=== PATIENT | male | born 1985 | race Caucasian/White ===

== ENCOUNTER 2025-02-19 12:59 | Outpatient (AMB) | payer MEDICAID, SELFPAY ==
--- OUTSIDE RECORDS SUMMARY | 2025-02-12 10:30 | XMS_ITS ---
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[employer] Tobacco use: Current [...] Risk Notes Problem Attention deficit hyperactivity disorder (892466766) Attention-deficit hyperactivity disorder, unspecified type (F90.9) Active confirmed Problem Tobacco user (881587059) Nicotine dependence, unspecified, uncomplicated (F17.200) Active confirmed Vital Signs Blood pressure systolic 93 mm Hg 02/13/20 25 Blood pressure diastolic 62 mm Hg 025 Heart Rate 130, 130.0 /min 02/12/2025 Height 67.72 in 02/12/2025 Weight 123 lbs 02/12/2025 BMI 18.86 kg/m2 02/12/2025 Oximetry 93 % 02/12/2025 Height-cm 172.01 cm 02/12/2025 Weight-kg 55.79 kg 02/12/2025 Encounters Encounter Location Date Provider Diagnosis [facility] [address] [facility] [address] [place], [place] 02/12/2025 ger scott Attention-deficit hyperactivity disorder, [...] PANEL, STANDARD (7600) 02/12/2025 COMPREHENSIVE METABOLIC PANEL (26888) CBC (INCLUDES DIFF/PLT) (6399) URINALYSIS, COMPLETE W/REFLEX TO CULTURE (3020) 02/12/2025 HEMOGLOBIN A1c (496) 02/12/2025 VITAMIN B12/FOLATE, SERUM PANEL (7065) 1 VITAMIN D,25-OH,TOTAL,IA (21265) 025 Next Appt Details Follow Up: Not discussed, Re ason: Provider Name:ger scott , 02/26/2025 03:00:00 PM, [address] [facility] [address], [place], [address], Procedure Notes * Category Sub-Category Detail Notes EKG Indication EKG : normal sin us rhythm with appropriate heart rate , no CO interval abnormalities , no ST segment changes [...] full range of motion Psych: cooperative with mauroa nilo Progress Notes * aJcob KIMBALLDOB:1985 ( 39 yo M)Acc No.[id number]:02/12/2025 Patient: Jacob Gu Provider: Lavelle Scott MD :1985 A ge:39 Y S ex:Male Date:02/12/2025 Address: [address] , [facility] Subjective: * Chief Complaints: * C heck [...] STANDARD (7600) L AB: COMPREHENSIVE METABOLIC PANEL (25394) L AB: CBC (INCLUDES DIFF/PLT) (6399) L AB: HEMOGLOBIN A1c (496) 6. E ncounter for screening for other suspected endocrine disorder L AB: THYROID PANEL WITH TSH (7444) 7. U rinary frequency L AB: URINALYSIS, COMPLETE W/REFLEX TO CULTURE (3020) 8. V itamin B12 deficiency L AB: VITAMIN B12/FOLATE, SERUM PANEL (7065) 9. V itamin D deficiency L AB: VITAMIN D,25-OH,TOTAL,IA (34237) * Procedures: E KG: Indication E KG : normal sinus rhythm with appropriate heart rate , no [place] interval abnormalities , no ST segment changes , or T wave abnormalities no signs of ischemia . no QRS interval abnormalities. * Procedure Codes: 9 3000 -ELECTROCARDIOGRAM, COMPLETE * Follow Up: N ot discussed Billing Information: * Visit Code: 57185 Preventive Care New Pt. Age 18-39. * Procedure Codes: 26285 -ELECTROCARDIOGRAM, COMPLETE. * Electronic signature of ger scott MD on 02/19/2025 at 04:22 PM EDT Sign off status: Pending * Provider: Lavelle Scott MD Date: Generated for Feng silveira/Kristofer/Concepcionitting on: 04:22 PM EDT
[2025-02-19 13:09] VITALS: BP 136/70; PULSE 97; O2SAT 99; BMI 21.5
--- NOTE | 2025-02-19 13:09 | MHC.OFFVIS ---
Vital Signs 02/19/25 13:09 Height 5 ft 7 in Weight 137 lb BMI 21.5 BP 136/70 Pulse 97 Pulse Oximetry (%) 99 Intake Visit Reasons: MAT Intake Allergies No Known Allergies Allergy (Verified 02/19/25 13:10) HPI Comments Details: A 39-year-old male presents for a MAT intake r/t GEORGIE. Reports in remission for past 1.5 years with buprenorphine-naloxone 8-2 mg BID and is transferring care as current provider no longer accepts his insurance. Acknowledges intermittent use of smoking heroin, due to increase cravings. Denies alcohol consumption, smokes 1 pack of cigarettes per day and will intermittently use cocaine. 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 Is engaged in mental health services with a psychiatrist inpatient states I need an increase in the buprenorphine-naloxone frequency to help lessen my cravings. [facility] Social History (Updated 02/19/25 @ 13:33 by FREDERICK Ryan) Household Members: Family Household Members Other:: Mother Are you a primary youth care professional to a significant other at home: Yes Do you presently have visiting nurse or other home services: No Review of Systems Const All systems reviewed & are unremarkable except as noted in HPI and below Physical Exam Vital Signs: Last Vital Signs Pulse 97 02/19/25 13:09 BP 136/70 02/19/25 13:09 Pulse Ox 99 02/19/25 13:09 BMI result Body Mass Index 21.5 Const General: cooperative Nutritional Appearance: thin Orientation/consciousness: oriented to person HEENT Head: Yes normal to inspection Ears: hearing grossly normal bilaterally General nose exam: Normal external nose present Face and sinus: Yes normal facial exam Teeth and gingiva: poor dentition Neuro General: oriented to person Results AMB 14 Panel Urine Drug Screen Urine Marijuana (THC) Negative Last Edit by Adrianne Benitez CMA on 02/19/25 13:12 Urine Cocaine Positive Last Edit by Adrianne Benitez CMA on 02/19/25 13:12 Urine Morphine Negative Last Edit by Adrianne Benitez CMA on 02/19/25 13:12 Urine Methamphetamine Negative Last Edit by Adrianne Benitez CMA on 02/19/25 13:12 Urine Amphetamine Negative Last Edit by Adrianne Benitez CMA on 02/19/25 13:12 Urine Benzodiazepine Negative Last Edit by Adrianne Benitez CMA on 02/19/25 13:12 Urine Barbiturates Negative Last Edit by Adrianne Benitez CMA on 02/19/25 13:12 Urine Methadone Negative Last Edit by Adrianne Benitez CMA on 02/19/25 13:12 Urine Buprenorphine Positive Last Edit by Adrianne Benitez CMA on 02/19/25 13:12 Urine Tricyclic Antidepressant Negative Last Edit by Adrianne Benitez CMA on 02/19/25 13:12 Urine MDMA Negative Last Edit by Adrianne Benitez CMA on 02/19/25 13:12 Urine Oxycodone Negative Last Edit by Adrianne Benitez CMA on 02/19/25 13:12 Urine Phencyclidine Negative Last Edit by Adrianne Benitez CMA on 02/19/25 13:12 Urine Propoxyphene Negative Last Edit by Adrianne Benitez CMA on 02/19/25 13:12 Results Reviewed Results Reviewed: Laboratory Last Values POC Urine Buprenorphine Positive 02/19/25 13:11 POC Urine Morphine Negative 02/19/25 13:11 POC Urine Oxycodone Negative 02/19/25 13:11 POC Urine Methadone Negative 02/19/25 13:11 POC Urine Propoxyphene Negative 02/19/25 13:11 POC Urine Barbiturates Negative 02/19/25 13:11 POC U Tricyclic Antidpr Negative 02/19/25 13:11 POC Urine PCP Negative 02/19/25 13:11 POC Ur Amphetamines Negative 02/19/25 13:11 POC Ur Methamphetamine Negative 02/19/25 13:11 POC Urine MDMA Negative 02/19/25 13:11 POC Ur Benzodiazepine Negative 02/19/25 13:11 POC Urine Cocaine Positive 02/19/25 13:11 POC Ur Marijuana (THC) Negative 02/19/25 13:11 Assessment & Plan Assessment & Plan (1) Hepatitis C virus: Code(s): B19.20 - Unspecified viral hepatitis C without hepatic coma Category: Medical Qualifiers: Viral hepatitis chronicity: unspecified Hepatic coma status: without hepatic coma Qualified Code(s): B19.20 - Unspecified viral hepatitis C without hepatic coma (2) Substance use disorder: Code(s): F19.90 - Other psychoactive substance use, unspecified, uncomplicated Category: Medical Plan The plan of care is to increase buprenorphine-naloxone 8-2 mg from BID to TID to minimize cravings for heroin. Education provided regarding risk reduction activities to reduce the use of cocaine, and cigarettes. Narcan prescribed. Follow-up in 2 weeks or sooner if needed. Orders: Orders AMB 14 Panel Urine Drug Screen Today Z51.81 - Encounter for therapeutic drug level monitoring Medications: New buprenorphine-naloxone 8-2 mg (Suboxone) One film sublingually 3 times per day 1 film sublingual TID 42 ea 0RF 14 days naloxone 4 mg/actuation (Narcan) spray 1 dose into ONE nostril; alternate nostrils w each dose until help arrives 1 spray intranasal Q2M 2 ea 1RF 30 days Patient Instructions: - Start on increase buprenorphine-naloxone as prescribed. - Engage in risk reduction activities minimize use of cocaine and cigarettes. - Narcan prescribed. - Follow-up in 2 weeks or sooner if needed. - Call with questions, concerns, or to report side effects/new onset of symptoms to [facility]. - The patient verbalized understanding and agreed with plan of care. Coding Level of Care Code New Pt Level 3 (40833) Diagnoses Hepatitis C virus infection without hepatic coma, unspecified chronicity B19.20 Viral hepatitis chronicity: unspecified Hepatic coma status: without hepatic coma Substance use disorder F19.90
--- OUTSIDE RECORDS SUMMARY | 2025-02-19 16:23 | XMS_ITS | Patient Health Record ---
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 Marital status: Not Education: High school graduate Children: No children Drug use: Denies heroin, cocaine, marijuana, and other substances Alcohol use: Not discussed Problems Problem Type SNOMED Code ICD Code Onset Dates Problem Status W/U Status Risk Notes Problem Tobacco user (773152192) Nicotine dependence, unspecified, uncomplicated (F17.200) Active confirmed Problem Attention deficit hyperactivity disorder (824532098) Attention-deficit hyperactivity disorder, unspecified type (F90.9) Active confirmed Problem Vitamin D deficiency (74241080) Vitamin D deficiency (E55.9) Active confirmed Problem Hypercholesterolemia (08905453) Hypercholesterolemia (E78.00) Active confirmed Vital Signs Heart Rate 130, 130.0 /min 02/12/2025 Height-cm 172.01 cm 02/12/2025 Oximetry 93 % 02/12/2025 Blood pressure diastolic 62 mm Hg 02/12/2025 Weight-kg 55.79 kg 02/12/2025 Height 67.72 in 02/12/2025 Blood pressure systolic 93 mm Hg 02/12/2025 Weight 123 lbs 02/12/2025 BMI 18.86 kg/m2 02/12/2025 Encounters Encounter Location Date Provider Diagnosis [facility] [address] [facility] [address] [place], [place] 02/12/2025 ger scott Attention-deficit hyperactivity disorder, [...] deficiency (ICD-10 - E55.9) Plan Of Treatment Pending Test Test Name Order Date THYROID PANEL WITH TSH (7444) 02/12/2025 LIPID PANEL, STANDARD (7600) 02/12/2025 COMPREHENSIVE METABOLIC PANEL (16218) CBC (INCLUDES DIFF/PLT) (6399) URINALYSIS, COMPLETE W/REFLEX TO CULTURE (3020) 02/12/2025 HEMOGLOBIN A1c (496) 02/12/2025 VITAMIN B12/FOLATE, SERUM PANEL (7065) 1 VITAMIN D,25-OH,TOTAL,IA (47129) 025 Next Appt Details Provider Name:ger scott , 02/26/2025 03:00:00 PM, [address] [facility] [address], [place], [address], Insurance Providers Payer Name Payer Address Payer Phone Subscriber Number Group Number Insured Name Patient Relationship to Insured Coverage Start Date Coverage End Date [place] [address] [place] [address] [id number] Jacob Bazan Self - patient is the insured Medical (General) History Medical History History ICD Code adhd Attention-deficit hyperactivity disorder (adhd) Tobacco use disorder Surgical History Surgery Date(Month/Year) Denies any surgical history Hospitalization History Reason Date(Month/Year) Denies prior hospitalizations
== END 2025-02-19 13:30 | disposition home or self-care (01) ==
LOC: HO.HCC 12:59
PROVIDERS: Visit Provider Clinical Nurse Specialist Psychiatric/Mental Health
DX: B19.20 Unspecified viral hepatitis C without hepatic coma (principal); F19.90 Other psychoactive substance use, unspecified, uncomplicated; Z51.81 Encounter for therapeutic drug level monitoring
CPT/HCPCS: 99203

== ENCOUNTER → 2025-02-19 12:59 | Outpatient (BNVA) | payer MEDICAID, SELFPAY | PROVIDERS: Visit Provider Clinical Nurse Specialist Psychiatric/Mental Health | DX: B19.20 Unspecified viral hepatitis C without hepatic coma (principal); F19.90 Other psychoactive substance use, unspecified, uncomplicated; Z51.81 Encounter for therapeutic drug level monitoring; F17.200 Nicotine dependence, unspecified, uncomplicated | CPT/HCPCS: 80307; 99212 ==

== ENCOUNTER 2025-03-05 14:16 | Outpatient (AMB) | payer MEDICAID, SELFPAY ==
--- OUTSIDE RECORDS SUMMARY | 2025-02-12 09:30 | XMS_ITS ---
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 [...] Risk Notes Problem Attention deficit hyperactivity disorder (771215521) Attention-deficit hyperactivity disorder, unspecified type (F90.9) Active confirmed Problem Tobacco user (547756340) Nicotine dependence, unspecified, uncomplicated (F17.200) Active confirmed Vital Signs Blood pressure systolic 93 mm Hg 02/13/20 25 Blood pressure diastolic 62 mm Hg 025 Heart Rate 130, 130.0 /min 02/12/2025 Height 67.72 in 02/12/2025 Weight 123 lbs 02/12/2025 BMI 18.86 kg/m2 02/12/2025 Oximetry 93 % 02/12/2025 Height-cm 172.01 cm 02/12/2025 Weight-kg 55.79 kg 02/12/2025 Encounters Encounter Location Date Provider Diagnosis [facility] [address] [facility] [address] [place], [place] 02/12/2025 ger scott Attention-deficit hyperactivity disorder, [...] PANEL, STANDARD (7600) 02/12/2025 COMPREHENSIVE METABOLIC PANEL (94065) CBC (INCLUDES DIFF/PLT) (6399) URINALYSIS, COMPLETE W/REFLEX TO CULTURE (3020) 02/12/2025 HEMOGLOBIN A1c (496) 02/12/2025 VITAMIN B12/FOLATE, SERUM PANEL (7065) 1 VITAMIN D,25-OH,TOTAL,IA (21905) 025 Next Appt Details Follow Up: Not discussed, Re ason: Provider Name:ger scott , 03/06/2025 04:00:00 PM, [address] [place] [address] [address], [place], [address], Procedure Notes * Category Sub-Category Detail Notes EKG Indication EKG : normal sin us rhythm with appropriate heart rate , no [place] interval abnormalities , no ST segment changes [...] * Jacob KIMBALLDOB:1985 ( 39 yo M)Acc No.[id number]:02/12/2025 Patient: Jacob Gu Provider: Lavelle Scott MD :1985 A ge:39 Y S ex:Male Date:02/12/2025 Address: [address] [id number] Subjective: * Chief Complaints: * C heck [...] STANDARD (7600) L AB: COMPREHENSIVE METABOLIC PANEL (79534) L AB: CBC (INCLUDES DIFF/PLT) (6399) L AB: HEMOGLOBIN A1c (496) 6. E ncounter for screening for other suspected endocrine disorder L AB: THYROID PANEL WITH TSH (7444) 7. U rinary frequency L AB: URINALYSIS, COMPLETE W/REFLEX TO CULTURE (8600) 8. V itamin B12 deficiency L AB: VITAMIN B12/FOLATE, SERUM PANEL (7229) 9. V itamin D deficiency L AB: VITAMIN D,25-OH,TOTAL,IA (91106) * Procedures: E KG: Indication E KG : normal sinus rhythm with appropriate heart rate , no [place] interval abnormalities , no ST segment changes , or T wave abnormalities no signs of ischemia . no QRS interval abnormalities. * Procedure Codes: 9 3000 -ELECTROCARDIOGRAM, COMPLETE * Follow Up: N ot discussed Billing Information: * Visit Code: 14421 Preventive Care New Pt. Age 18-39. * Procedure Codes: 62610 -ELECTROCARDIOGRAM, COMPLETE. * Electronic signature of ger scott MD on 03/05/2025 at 03:55 PM EST Sign off status: Pending * Provider: Lavelle Scott MD Date: Generated for Feng silveira/Kristofer/Concepcionitting on: 05/05/2024 03:55 PM EST
--- OUTSIDE RECORDS SUMMARY | 2025-02-26 10:00 | XMS_ITS ---
Author Organization [facility] Address [address] [place], [place] Care Team Providers Care Chalk Cutter Name Role Phone ger scott Unavailable [phone] REASON FOR VISIT F/U LABS Encounters Encounter Location Date Provider Diagnosis [facility] [address] [place], [place] 02/26/2025 ger scott Plan Of Treatment Next Appt Details Provider Name:ger scott , 03/06/2025 04:00:00 PM, [address], [place], [place], , Progress Notes * REHANA JacobDOB:1985 ( 39 yo M)Acc No.[id number]:02/26/2025 Progress Notes Patient: Jacob Gu Provider: Lavelle Scott MD :1985 A ge:39 Y S ex:Male Date:02/26/2025 Address: [address] [place] Subjective: * Chief Complaints: * F /U LABS * Electronic signature of ger scott MD on 03/05/2025 at 03:55 PM EST Sign off status: Pending * Provider: Lavelle Scott MD Date: 04/28/2024 Generated for Printi ng/Faxing/eTransmitting on: 05/05/2024 03:55 PM EST
--- OUTSIDE RECORDS SUMMARY | 2025-02-27 07:30 | XMS_ITS ---
Author Organization [facility] Address [address] [place], [place] Care Team Providers Care Pick Up Truck Driver Name Role Phone ger scott Unavailable [phone] REASON FOR VISIT DISABILITY PAPER WORK Encounters Encounter Location Date Provider Diagnosis [facility] [address] [place], [place] 02/27/2025 ger scott Plan Of Treatment Next Appt Details Provider Name:ger scott , 03/06/2025 04:00:00 PM, [address], [place], [place], , Progress Notes * KIMBALL, JacobDOB:1985 ( 39 yo M)Acc No.[id number]:02/27/2025 Progress Notes Patient: Jacob Gu Provider: Lavelle Scott MD :1985 A ge:39 Y S ex:Male Date:02/27/2025 Address: [address] [facility] Subjective: * Chief Complaints: * D ISABILITY PAPER WORK Billing Information: * Procedure Codes: * Electronic signature of ger scott MD on 03/05/2025 at 03:55 PM EST Sign off status: Pending * Provider: Lavelle Scott MD Date: 04/29/2024 Generated for Printi ng/Faxing/eTransmitting on: 05/05/2024 03:55 PM EST
[2025-03-05 14:24] VITALS: BP 122/78; PULSE 110; O2SAT 96
--- NOTE | 2025-03-05 14:24 | MHC.OFFVIS ---
Vital Signs 03/05/25 14:24 BP 122/78 Pulse 110 H Pulse Oximetry (%) 96 Intake Visit Reasons: MAT Allergies No Known Allergies Allergy (Verified 03/05/25 14:25) HPI Comments Details: A 39 year old male presents for follow up visit r/t GEORGIE in remission with buprenorphine-naloxone 8-2 mg TID. Denies use of opiates, alcohol, and other substances with the exception of smoking cigarettes and cannabis. Reports gradually decreasing use of cigarettes and cannabis. [facility] Social History Household Members: Family Household Members Other:: Mother Are you a primary rn urgent care to a significant other at home: Yes Do you presently have visiting nurse or other home services: No Review of Systems Const All systems reviewed & are unremarkable except as noted in HPI and below Physical Exam Vital Signs: Last Vital Signs Pulse 110 H 03/05/25 14:24 BP 122/78 03/05/25 14:24 Pulse Ox 96 03/05/25 14:24 Const General: cooperative Assessment & Plan Assessment & Plan (1) Substance use disorder: Code(s): F19.90 - Other psychoactive substance use, unspecified, uncomplicated Category: Medical Plan The plan of care is to continue with buprenorphine-naloxone 8-2 mg TID and follow-up in 1 month or sooner needed. Patient Instructions: - Continue with buprenorphine-naloxone as prescribed. - Follow-up in 1 month or sooner if needed. - Call with questions, concerns, or to report side effects/new onset of symptoms to [facility]. - The patient verbalized understanding and agreed with plan of care. Coding Level of Care Code Est Pt Level 3 (97690) Diagnoses Substance use disorder F19.90
--- OUTSIDE RECORDS SUMMARY | 2025-03-05 15:55 | XMS_ITS | Patient Health Record ---
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[employer] Tobacco use: Current smoker, more than 15 years Occupation: Not currently working; previously worked on mother's [employer] Marital status: Not Education: High school graduate Children: No children Drug use: Denies heroin, cocaine, marijuana, and other substances Alcohol use: Not discussed Problems Problem Type SNOMED Code ICD Code Onset Dates Problem Status W/U Status Risk Notes Problem Tobacco user (058131952) Nicotine dependence, unspecified, uncomplicated (F17.200) Active confirmed Problem Attention deficit hyperactivity disorder (631099891) Attention-deficit hyperactivity disorder, unspecified type (F90.9) Active confirmed Problem Vitamin D deficiency (96497463) Vitamin D deficiency (E55.9) Active confirmed Problem Hypercholesterolemia (13521523) Hypercholesterolemia (E78.00) Active confirmed Vital Signs Heart Rate 130, 130.0 /min 02/12/2025 Height-cm 172.01 cm 02/12/2025 Oximetry 93 % 02/12/2025 Blood pressure diastolic 62 mm Hg 02/12/2025 Weight-kg 55.79 kg 02/12/2025 Height 67.72 in 02/12/2025 Blood pressure systolic 93 mm Hg 02/12/2025 Weight 123 lbs 02/12/2025 BMI 18.86 kg/m2 02/12/2025 Encounters Encounter Location Date Provider Diagnosis [facility] [address] [facility] [address] [place] [address] 02/12/2025 ger scott Attention-deficit hyperactivity disorder, unspecified [...] PANEL, STANDARD (7600) 02/12/2025 COMPREHENSIVE METABOLIC PANEL (94498) CBC (INCLUDES DIFF/PLT) (6399) URINALYSIS, COMPLETE W/REFLEX TO CULTURE (3020) 02/12/2025 HEMOGLOBIN A1c (496) 02/12/2025 VITAMIN B12/FOLATE, SERUM PANEL (7065) 1 VITAMIN D,25-OH,TOTAL,IA (25357) 025 Next Appt Details Provider Name:ger jean paul scott , 03/06/2025 04:00:00 PM, [address], [place], [address], Insurance Providers Payer Name Payer Address Payer Phone Subscriber Number Group Number Insured Name Patient Relationship to Insured Coverage Start Date Coverage End Date [place] s [address] [place] [address] [id number] Jacob Bazan Self - patient is the insured Medical (General) History Medical History History ICD Code adhd Attention-deficit hyperactivity disorder (adhd) Tobacco use disorder Surgical History Surgery Date(Month/Year) Denies any surgical history Hospitalization History Reason Date(Month/Year) Denies prior hospitalizations
== END 2025-03-05 14:28 | disposition home or self-care (01) ==
LOC: HO.HCC 14:16
PROVIDERS: Visit Provider Clinical Nurse Specialist Psychiatric/Mental Health
DX: F19.90 Other psychoactive substance use, unspecified, uncomplicated (principal)
CPT/HCPCS: 99213

== ENCOUNTER → 2025-03-05 14:16 | Outpatient (BNVA) | payer MEDICAID, SELFPAY | PROVIDERS: Visit Provider Clinical Nurse Specialist Psychiatric/Mental Health | DX: F19.90 Other psychoactive substance use, unspecified, uncomplicated (principal); Z51.81 Encounter for therapeutic drug level monitoring; F17.210 Nicotine dependence, cigarettes, uncomplicated | CPT/HCPCS: 99212 ==

== ENCOUNTER 2025-04-03 14:32 | Outpatient (AMB) | payer MEDICAID, SELFPAY ==
--- OUTSIDE RECORDS SUMMARY | 2025-02-12 09:30 | XMS_ITS ---
Author Organization [facility] Address [address] [facility] [address] [place] [address] Care Team Providers Care Segmental Paving Supervisor Name Role Phone ger scott Unavailable [phone] Allergies No Known Allergies REASON FOR VISIT check up Medications Medication SIG (Take, Route, Frequency, Duration) Notes Start Date End Date Status buPROPion HCl ER (SR) 100 MG Tablet Extended Release 12 Hour TAKE 1 TABLET BY MOUTH TWICE A DAY Oral; Duration: 30 Days Active Suboxone 8-2 MG Film DISSOLVE 2 FILMS UN CASTILLO THE TONGUE EVERY DAY Sublingual; Duration: 30 Days Active Vyvanse 70 MG Capsule TAKE 1 CAPSULE BY MOUTH EVERY DAY IN THE MORNING Oral; Duration: 30 Days Active clonazePAM 0.5 MG Tablet TAKE 1 TABLET B Y MOUTH DAILY Oral; Duration: 30 Days Active Social History Tobacco Use: Social History Observation Description Date Details (start date - stop date) Current Smoker NA - NA Social History Drug/Alcohol: Social Info Question Answer Notes AUDIT-C (Standard) Did you have a drink containing alcohol in the past year? No Points 0 Interpretation Negative Tobacco Use: Social Info Question Answer Notes Tobacco Control (Standard) Tobacco use: Current smoker How often do you smoke cigarettes? Every day How many cigarettes a day do you smoke? 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 years Occupation: Not currently working; previously worked on mother's [employer] Marital status: Not Education: High school graduate Children: No children Drug use: Denies heroin, cocaine, marijuana, and other substances Alcohol use: Not discussed Problems Problem Type SNOMED Code ICD Code Onset Dates Problem Status W/U Status Risk Notes Problem Attention deficit hyperactivity disorder (424206721) Attention-deficit hyperactivity disorder, unspecified type (F90.9) Active confirmed Problem Tobacco user (143254644) Nicotine dependence, unspecified, uncomplicated (F17.200) Active confirmed Vital Signs Blood pressure systolic 93 mm Hg 02/13/20 25 Blood pressure diastolic 62 mm Hg 025 Heart Rate 130, 130.0 /min 02/12/2025 Height 67.72 in 02/12/2025 Weight 123 lbs 02/12/2025 BMI 18.86 kg/m2 02/12/2025 Oximetry 93 % 02/12/2025 Height-cm 172.01 cm 02/12/2025 Weight-kg 55.79 kg 02/12/2025 Encounters Encounter Location Date Provider Diagnosis [facility] [address] [facility] [address] [place], [place] 02/12/2025 ger scott Attention-deficit hyperactivity disorder, unspecified type F90.9 ; Annual physical exam Z00.00 ; Nicotine dependence, unspecified, uncomplicated F17.200 ; Tachycardia, unspecified R00.0 ; Hypercholesterolemia E78.00 ; Encounter for screening for other suspected endocrine disorder Z13.29 ; Urinary frequency R35.0 ; Vitamin B12 deficiency E53.8 and Vitamin D deficiency E55.9 Assessments Encounter Date Diagnosis (ICD Code) Assessment Notes Treatment Notes Treatment Clinical Notes Section Notes 02/12/2025 Attention-deficit hyperactivity disorder, unspecified type (ICD-10 - F90.9) ADHD is an ongoing condition managed with mental health medications. Patient selectively adheres to prescribed regimen, currently only taking Wellbutrin. Other medications (clonazepam, Vyvanse, Suboxone) are prescribed but not taken. 02/12/2025 Annual physical exam (ICD-10 - Z00.00) 02/12/2025 Nicotine dependence, unspecified, uncomplicated (ICD-10 - F17.200) Patient is a current smoker with more than 15 years of tobacco use. - Chest X-ray recommended due to long-term smoking history. 02/12/2025 Tachycardia, unspecified (ICD-10 - R00.0) Heart rate measured at 130 beats per minute during visit. No substance use reported by patient. - Electrocardiogram (EKG) ordered to evaluate tachycardia. - Comprehensive metabolic panel, kidney function panel, diabetes screening panel, and electrolytes panel ordered to assess underlying causes. 02/12/2025 Hypercholesterolemia (ICD-10 - E78.00) 02/12/2025 Encounter for screening for other suspected endocrine disorder (ICD-10 - Z13.29) 02/12/2025 Urinary frequency (ICD-10 - R35.0) 02/12/2025 Vitamin B12 deficien cy (ICD-10 - E53.8) 02/12/2025 Vitamin D deficiency (ICD-10 - E55.9) Plan Of Treatment Treatment Notes Assessment Notes Attention-deficit hyperactiv ity disorder, unspecified type ADHD is an ongoing condition managed wit mental health medications. Patient selectively adheres to prescribed regimen, currently only taking Wellbutrin. Other medications (clonazepam, Vyvanse, Suboxone) are prescribed but not taken. Nicotine dependence, unspeci fied, uncomplicated Patient is a current smoker with more than 15 years of tobacco use. - Chest X-ray recommended due to long-term smoking history. Tachycardia, unspecified Heart rate measured at 130 beats per minute during visit. No substance use reported by patient. - Electrocardiogram (EKG) ordered to evaluate tachycardia. - Comprehensive metabolic panel, kidney function panel, diabetes screening panel, and electrolytes panel ordered to assess underlying causes. Pending Test Test Name Order Date THYROID PANEL WITH TSH (7444) 02/12/2025 LIPID PANEL, STANDARD (7600) 02/12/2025 COMPREHENSIVE METABOLIC PANEL (17009) CBC (INCLUDES DIFF/PLT) (6399) URINALYSIS, COMPLETE W/REFLEX TO CULTURE (3020) 02/12/2025 HEMOGLOBIN A1c (496) 02/12/2025 VITAMIN B12/FOLATE, SERUM PANEL (7065) 1 VITAMIN D,25-OH,TOTAL,IA (47533) 025 Next Appt Details Follow Up: Not discussed, Re ason: Procedure Notes * Category Sub-Category Detail Notes EKG Indication EKG : normal sin us rhythm with appropriate heart rate , no ME interval abnormalities , no ST segment changes , or T wave abnormalities no signs of ischemia . no QRS interval abnormalities History and Physical Notes * HPI (History of Present Illness) Category Sub-Category Detail Notes Category Not es Depression Screening PHQ-2 (2015 Edition) Little interest or pleasure in doing things?: Not at all Feeling down, depressed, or hopeless?: N ot at all Total Score: 0 General HPI Jacob Kimball, a 39-year-old male, presented for a chronic condition follow-up focused on ADHD management and evaluation of an elevated heart rate. He described his current approach to mental health medications, noting that he only takes Wellbutrin and does not take clonazepam or Vyvanse, despite having prescriptions from his psychiatrist for Suboxone and other medications. This selective adherence highlights his personal strategy for managing his mental health, as well as potential non-compliance with prescribed regimens. During the visit, I noted his heart rate was significantly elevated at 130 beats per minute. He denied any use of heroin, cocaine, marijuana, or other substances, providing reassurance against substance-induced tachycardia. Additionally, Jacob is a current smoker and has maintained this habit for more than 15 years, which is relevant to his overall health profile and risk factors. These elements together frame the context of his visit and inform the ongoing management of his chronic conditions. Examination Category Sub-Category Detail Notes Category Not es General Examination General appearance: alert, p leasant, well-nourished and in no acute distress comfortable Head: normocephalic, Eyes: pupils equal, round, reactive to light and accommodation Ears: normal Nose: no lesions Neck / thyroid: carotid pulses are n ormal and without bruits neck is supple, with full range of motion and no cervical lymphadenopathy normal thyroid size and shape without nodules, or tenderness trachea midline Heart: regular rate and rhy thm without murmurs, gallops, clicks or rubs Lungs: with diminished edison th sounds throughout clear to auscultation bilaterally, with good air movement and no rales, rhonchi or wheezes Abdomen: soft with good bowel sounds, nontender, and no masses or hepatosplenomegaly no guarding or rigidity Extremities: normal extremity wit h no clubbing, cyanosis or edema Musculoskeletal: no swelling, redness , warmth or tenderness of the shoulder(s) with full range of motion Psych: cooperative with exa m Progress Notes * Jacob KIMBALLDOB:1985 ( 39 yo M)Acc No.[id number]:02/12/2025 Patient: Jacob Gu Provider: Lavelle Scott MD :1985 A ge:39 Y S ex:Male Date:02/12/2025 Address: [address] , [facility] Subjective: * Chief Complaints: * C heck up * HPI: D epression Screening: PHQ-2 (2015 Edition) L ittle interest or pleasure in doing things??Not at all F eeling down, depressed, or hopeless? N ot at all T otal Score 0 G eneral HPI: Jacob Kimball, a 39-year-old male, presented for a chronic condition follow-up focused on ADHD management and evaluation of an elevated heart rate. He described his current approach to mental health medications, noting that he only takes Wellbutrin and does not take clonazepam or Vyvanse, despite having prescriptions from his psychiatrist for Suboxone and other medications. This selective adherence highlights his personal strategy for managing his mental health, as well as potential non-compliance with prescribed regimens. During the visit, I noted his heart rate was significantly elevated at 130 beats per minute. He denied any use of heroin, cocaine, marijuana, or other substances, providing reassurance against substance-induced tachycardia. Additionally, Jacob is a current smoker and has maintained this habit for more than 15 years, which is relevant to his overall health profile and risk factors. These elements together frame the context of his visit and inform the ongoing management of his chronic conditions. * ROS: G eneral / Constitutional: Comments a ll 14 review of systems are negative except those mentioned in present history. * Medical History: Adhd Attention-deficit hyperactivity disorder (adhd) Tobacco use disorder Medical History Verified * Surgical History: Denies any surgical history Surgical History verified. * Hospitalization/Major Diagno stic Procedure: Denies prior hospitalizations Hospitalization Verified. * Family History: F ather: Prostate cancer. F amily History Verified.. Dad : prostate cancer. * Social History: T obacco Use: T obacco Use/Smoking T obacco use: c urrent smoker Tobacco Control (Standard) T obacco use: C urrent smoker H ow often do you smoke cigarettes? E very day H ow many cigarettes a day do you smoke? 1 1-20 D rug/Alcohol: A ROCÍO-C (Standard) D id you have a drink containing alcohol in the past year? 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 * Medications: T akingSuboxone 8-2 MG Film DISSOLVE 2 FILMS UNDER THE TONGUE EVERY DAY Sublingual Vyvanse 70 MG Capsule TAKE 1 CAPSULE BY MOUTH EVERY DAY IN THE MORNING Oral clonazePAM 0.5 MG Tablet TAKE 1 TABLET BY MOUTH DAILY Oral buPROPion HCl ER (SR) 100 MG Tablet Extended Release 12 Hour TAKE 1 TABLET BY MOUTH TWICE A DAY Oral Medication List reviewed and reconciled with the patientTaking Suboxone 8-2 MG Film DISSOLVE 2 FILMS UNDER THE TONGUE EVERY DAY Sublingual Taking Vyvanse 70 MG Capsule TAKE 1 CAPSULE BY MOUTH EVERY DAY IN THE MORNING Oral Taking clonazePAM 0.5 MG Tablet TAKE 1 TABLET BY MOUTH DAILY Oral Taking buPROPion HCl ER (SR) 100 MG Tablet Extended Release 12 Hour TAKE 1 TABLET BY MOUTH TWICE A DAY Oral Medication List reviewed and reconciled with the patient * Allergies: N .K.D.A.yesAllergies Verified. Objective: * Vitals: B P:93/62mm Hg, HR: 130 /min,130.0/min, Oxygen sat %:93%, Wt:123lbs, Wt- k.79kg, Ht:67.72in, Ht-cm:172.01cm, BMI:18.86Index, Body Surface Area:1.63. * Examination: G eneral Examination: General appearance: a lert, pleasant, well-nourished and in no acute distress comfortable . Head: n ormocephalic,. Eyes: p upils equal, round, reactive to light and accommodation. Ears: n ormal. Nose: n o lesions . Neck / thyroid: c arotid pulses are normal and without bruits neck is supple, with full range of motion and no cervical lymphadenopathy normal thyroid size and shape without nodules, or tenderness trachea midline . Heart: r egular rate and rhythm without murmurs, gallops, clicks or rubs . Lungs: w ith diminished breath sounds throughout clear to auscultation bilaterally, with good air movement and no rales, rhonchi or wheezes . Abdomen: s oft with good bowel sounds, nontender, and no masses or hepatosplenomegaly no guarding or rigidity . Musculoskeletal: n o swelling, redness, warmth or tenderness of the shoulder(s) with full range of motion . Extremities: n ormal extremity with no clubbing, cyanosis or edema . Psych: c ooperative with exam . Assessment: * Assessment: 1. A nnual physical exam - Z00.00 (Primary) 2 . A ttention-deficit hyperactivity disorder, unspecified type - F90.9 3 . N icotine dependence, unspecified, uncomplicated - F17.200 4 . T achycardia, unspecified - R00.0 5 . H ypercholesterolemia - E78.00 6 . E ncounter for screening for other suspected endocrine disorder - Z13.29 7 . U rinary frequency - R35.0 ?8. V itamin B12 deficiency - E53.8 9 . V itamin D deficiency - E55.9 ? Plan: * Treatment: 2. A ttention-deficit hyperactivity disorder, unspecified type Notes: ADHD is an ongoing condition managed with mental health medications. Patient selectively adheres to prescribed regimen, currently only taking Wellbutrin. Other medications (clonazepam, Vyvanse, Suboxone) are prescribed but not taken. 3. N icotine dependence, unspecified, uncomplicated Notes: Patient is a current smoker with more than 15 years of tobacco use. - Chest X-ray recommended due to long-term smoking history. 4. T achycardia, unspecified Notes: Heart rate measured at 130 beats per minute during visit. No substance use reported by patient. - Electrocardiogram (EKG) ordered to evaluate tachycardia. - Comprehensive metabolic panel, kidney function panel, diabetes screening panel, and electrolytes panel ordered to assess underlying causes. 5. H ypercholesterolemia L AB: LIPID PANEL, STANDARD (7600) L AB: COMPREHENSIVE METABOLIC PANEL (58748) L AB: CBC (INCLUDES DIFF/PLT) (6399) L AB: HEMOGLOBIN A1c (496) 6. E ncounter for screening for other suspected endocrine disorder L AB: THYROID PANEL WITH TSH (7444) 7. U rinary frequency L AB: URINALYSIS, COMPLETE W/REFLEX TO CULTURE (3020) 8. V itamin B12 deficiency L AB: VITAMIN B12/FOLATE, SERUM PANEL (7065) 9. V itamin D deficiency L AB: VITAMIN D,25-OH,TOTAL,IA (46987) * Procedures: E KG: Indication E KG : normal sinus rhythm with appropriate heart rate , no ME interval abnormalities , no ST segment changes , or T wave abnormalities no signs of ischemia . no QRS interval abnormalities. * Procedure Codes: 9 3000 -ELECTROCARDIOGRAM, COMPLETE * Follow Up: N ot discussed Billing Information: * Visit Code: 19779 Preventive Care New Pt. Age 18-39. * Procedure Codes: 35870 -ELECTROCARDIOGRAM, COMPLETE. * Electronic signature of ger scott MD on 04/03/2025 at 10:48 PM EST Sign off status: Pending * Provider: Lavelle Scott MD Date: 1 Generated for Feng silveira/Kristofer/Concepcionitting on: 06/04/2024 10:48 PM EST
--- OUTSIDE RECORDS SUMMARY | 2025-02-26 10:00 | XMS_ITS ---
Author Organization [facility] Address [address] [facility] [address] [place], [place] Care Team Providers Care Interlocking And Signal Mechanic Name Role Phone ger scott Unavailable [phone] REASON FOR VISIT F/U LABS Encounters Encounter Location Date Provider Diagnosis [facility] [address] [facility] [address] [place], [place] 02/26/2025 ger scott Plan Of Treatment No Information Progress Notes * Jacob KIMBALLDOB:1985 ( 39 yo M)Acc No.[id number]:02/26/2025 Progress Notes Patient: Jacob Gu Provider: Lavelle Scott MD :1985 A ge:39 Y S ex:Male Date:02/26/2025 Address: [address] [facility] Subjective: * Chief Complaints: * F /U LABS * Electronic signature of ger scott MD on 04/03/2025 at 10:49 PM EST Sign off status: Pending * Provider: Lavelle Scott MD Date: 04/28/2024 Generated for Printi ng/Faxing/eTransmitting on: 1 06/04/2024 10:49 PM EST
--- OUTSIDE RECORDS SUMMARY | 2025-02-27 07:30 | XMS_ITS ---
Author Organization [facility] Address [address] [facility] [address] [place], [place] Care Team Providers Care Hydraulic Lift Driver Name Role Phone ger scott Unavailable [phone] REASON FOR VISIT DISABILITY PAPER WORK Encounters Encounter Location Date Provider Diagnosis [facility] [address] [facility] [address] [place], [place] 02/27/2025 ger scott Plan Of Treatment No Information Progress Notes * KIMBALLJacob SaxenaDOB:1985 ( 39 yo M)Acc No.[id number]:02/27/2025 Progress Notes Patient: Jacob Gu Provider: Lavelle Scott MD :1985 A ge:39 Y S ex:Male Date:02/27/2025 Address: [address] [facility] Subjective: * Chief Complaints: * D ISABILITY PAPER WORK Billing Information: * Procedure Codes: * Electronic signature of ger scott MD on 04/03/2025 at 10:50 PM EST Sign off status: Pending * Provider: Lavelle Scott MD Date: 04/29/2024 Generated for Printi ng/Faxing/eTransmitting on: 06/04/2024 10:50 PM EST
[2025-04-03 14:42] VITALS: BP 110/70; PULSE 100; O2SAT 99
--- NOTE | 2025-04-03 14:42 | MHC.AM.SUB ---
Vital Signs 04/03/25 14:42 BP 110/70 Pulse 100 Pulse Oximetry (%) 99 Intake Visit Reasons: MAT Allergies No Known Allergies Allergy (Verified 04/03/25 14:43) HPI Comments Details: A 39-year-old male presents for a follow-up visit r/t GEORGIE in early remission with buprenorphine-naloxone 8-2 mg TID. Has been able to maintain sobriety from cocaine use for past month and denies use opiates, alcohol, and other substances with the exception of cannabis. Review of Systems Const All systems reviewed & are unremarkable except as noted in HPI and below Physical Exam Vital Signs: Last Vital Signs Pulse 100 04/03/25 14:42 BP 110/70 04/03/25 14:42 Pulse Ox 99 04/03/25 14:42 Const General: cooperative Results AMB 14 Panel Urine Drug Screen Urine Marijuana (THC) Negative Last Edit by Adrianne Benitez CMA on 04/03/25 14:53 Urine Cocaine Negative Last Edit by Adrianne Benitez CMA on 04/03/25 14:53 Urine Morphine Negative Last Edit by Adrianne Benitez CMA on 04/03/25 14:53 Urine Methamphetamine Negative Last Edit by Adrianne Benitez CMA on 04/03/25 14:53 Urine Amphetamine Positive Last Edit by Adrianne Benitez CMA on 04/03/25 14:53 Urine Benzodiazepine Negative Last Edit by Adrianne Benitez CMA on 04/03/25 14:53 Urine Barbiturates Negative Last Edit by Adrianne Benitez CMA on 04/03/25 14:53 Urine Methadone Negative Last Edit by Adrianne Benitez CMA on 04/03/25 14:53 Urine Buprenorphine Positive Last Edit by Adrianne Benitez CMA on 04/03/25 14:53 Urine Tricyclic Antidepressant Negative Last Edit by Adrianne Benitez CMA on 04/03/25 14:53 Urine MDMA Negative Last Edit by Adrianne Benitez CMA on 04/03/25 14:53 Urine Oxycodone Negative Last Edit by Adrianne Benitez CMA on 04/03/25 14:53 Urine Phencyclidine Negative Last Edit by Adrianne Benitez CMA on 04/03/25 14:53 Urine Propoxyphene Negative Last Edit by Adrianne Benitez CMA on 04/03/25 14:53 Results Reviewed Results Reviewed: Laboratory Last Values POC Urine Buprenorphine Positive 04/03/25 14:45 POC Urine Morphine Negative 04/03/25 14:45 POC Urine Oxycodone Negative 04/03/25 14:45 POC Urine Methadone Negative 04/03/25 14:45 POC Urine Propoxyphene Negative 04/03/25 14:45 POC Urine Barbiturates Negative 04/03/25 14:45 POC U Tricyclic Antidpr Negative 04/03/25 14:45 POC Urine PCP Negative 04/03/25 14:45 POC Ur Amphetamines Positive 04/03/25 14:45 POC Ur Methamphetamine Negative 04/03/25 14:45 POC Urine MDMA Negative 04/03/25 14:45 POC Ur Benzodiazepine Negative 04/03/25 14:45 POC Urine Cocaine Negative 04/03/25 14:45 POC Ur Marijuana (THC) Negative 04/03/25 14:45 PFSH Social History Household Members: Family Household Members Other:: Mother Are you a primary healthcare representative to a significant other at home: Yes Do you presently have visiting nurse or other home services: No Assessment & Plan Assessment & Plan (1) Opioid use disorder, severe, in early remission: Code(s): F11.21 - Opioid dependence, in remission Category: Medical Plan The plan of care is to continue with buprenorphine-naloxone 8-2 mg TID and follow-up in 2 months or sooner needed. Orders: Orders AMB 14 Panel Urine Drug Screen Today Z51.81 - Encounter for therapeutic drug level monitoring Medications: Changed From buprenorphine-naloxone 8-2 mg (Suboxone) One film sublingually 3 times per day 1 film sublingual TID 14 days 42 ea 0RF To buprenorphine-naloxone 8-2 mg (Suboxone) One film sublingually 3 times per day 1 film sublingual TID 90 ea 1RF 30 days Patient Instructions: - Continue with buprenorphine-naloxone as prescribed. - Follow-up in 2 months or sooner if needed. - Call with questions, concerns, or to report side effects/new onset of symptoms to [facility]. - The patient verbalized understanding and agreed with plan of care.
--- OUTSIDE RECORDS SUMMARY | 2025-04-03 22:49 | XMS_ITS | Patient Health Record ---
Author Organization [facility] Address [address] [address] Care Team Providers Care Emt P Name Role Phone ger scott Unavailable [phone] Allergies No Known Allergies Reason For Referral No Information Medications Medication SIG (Take, Route, Frequency, Duration) Notes Start Date End Date Status buPROPion HCl ER (SR) 100 MG Tablet Extended Release 12 Hour TAKE 1 TABLET BY MOUTH TWICE A DAY Oral; Duration: 30 Days Active clonazePAM 0.5 MG Tablet TAKE 1 TABLET B Y MOUTH DAILY Oral; Duration: 30 Days Active Vyvanse 70 MG Capsule TAKE 1 CAPSULE BY MOUTH EVERY DAY IN THE MORNING Oral; Duration: 30 Days Active Suboxone 8-2 MG Film DISSOLVE 2 FILMS UN CASTILLO THE TONGUE EVERY DAY Sublingual; Duration: 30 Days Active Social History Tobacco [...] Use/Smoking Tobacco use: current smoker Section Notes: 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 [employer] Tobacco use: Current smoker, more than 15 years Occupation: Not currently working; previously worked on mother's [employer] Marital status: Not Education: High school graduate Children: No children Drug use: Denies heroin, cocaine, marijuana, and other substances Alcohol use: Not discussed Problems Problem Type SNOMED Code ICD Code Onset Dates Problem Status W/U Status Risk Notes Problem Tobacco user (174069823) Nicotine dependence, unspecified, uncomplicated (F17.200) Active confirmed Problem Attention deficit hyperactivity disorder (903783044) Attention-deficit hyperactivity disorder, unspecified type (F90.9) Active confirmed Problem Vitamin D deficiency (86303014) Vitamin D deficiency (E55.9) Active confirmed Problem Hypercholesterolemia (54655723) Hypercholesterolemia (E78.00) Active confirmed Vital Signs Heart Rate 80 /min 03/06/2025 Height-cm 172.01 cm 03/06/2025 Oximetry 95 % 03/06/2025 Blood pressure diastolic 104 mm Hg 03/06/2025 Weight-kg 57.7 kg 03/06/2025 Height 67.72 in 03/06/2025 Blood pressure systolic 159 mm Hg 03/06/2025 Weight 127.2 lbs 03/06/2025 BMI 19.5 kg/m2 03/06/2025 Encounters Encounter Location Date Provider Diagnosis [address] 02/12/2025 [facility] Attention-deficit hyperactivity disorder, unspecified type F90.9 ; Annual physical exam Z00.00 ; Nicotine dependence, unspecified, uncomplicated F17.200 ; Tachycardia, unspecified R00.0 ; Hypercholesterolemia E78.00 ; Encounter for screening for other suspected endocrine disorder Z13.29 ; Urinary frequency R35.0 ; Vitamin B12 deficiency E53.8 and Vitamin D deficiency E55.[address] 03/06/2025 [facility] Cellulitis of left finger L03.012 Assessments Encounter Date Diagnosis (ICD Code) Assessment Notes Treatment Notes Treatment Clinical Notes Section Notes 02/12/2025 Attention-deficit hyperactivity disorder, unspecified type (ICD-10 - F90.9) ADHD is an ongoing condition managed with mental health medications. Patient selectively adheres to prescribed regimen, currently only taking Wellbutrin. Other medications (clonazepam, Vyvanse, Suboxone) are prescribed but not taken. 02/12/2025 Annual physical exam (ICD-10 - Z00.00) 03/06/2025 Cellulitis of left finger (ICD-10 - L03.012) Redness and swelling present at the site of a cut on the left index finger. Symptoms suggest infection requiring antibiotic therapy. - Prescribed Keflex for 10 days. - Instructed patient to keep the Band-Aid loosely applied to allow aeration. - Advised patient to monitor for fever, increased swelling, or presence of white under the cut and seek care if symptoms worsen. 02/12/2025 Nicotine dependence, unspecified, uncomplicated (ICD-10 - [...] PANEL, STANDARD (7600) 02/12/2025 COMPREHENSIVE METABOLIC PANEL (44742) CBC (INCLUDES DIFF/PLT) (6399) URINALYSIS, COMPLETE W/REFLEX TO CULTURE (3020) 02/12/2025 HEMOGLOBIN A1c (496) 02/12/2025 VITAMIN B12/FOLATE, SERUM PANEL (7065) 1 VITAMIN D,25-OH,TOTAL,IA (46548) 025 Insurance Providers Payer Name Payer Address Payer Phone Subscriber Number Group Number Insured Name Patient Relationship to Insured Coverage Start Date Coverage End Date [employer] [place] [address] [place] [address] [id number] Jacob Bazan Self - patient is the insured Medical (General) History Medical History History ICD Code adhd Attention-deficit hyperactivity disorder (adhd) Tobacco use disorder Surgical History Surgery Date(Month/Year) Denies any surgical history Hospitalization History Reason Date(Month/Year) Denies prior hospitalizations
== END 2025-04-03 14:54 | disposition home or self-care (01) ==
LOC: HO.HCC 14:32
PROVIDERS: Visit Provider Clinical Nurse Specialist Psychiatric/Mental Health
DX: Z51.81 Encounter for therapeutic drug level monitoring (principal); F11.21 Opioid dependence, in remission
CPT/HCPCS: 99213

== ENCOUNTER → 2025-04-03 14:32 | Outpatient (BNVA) | payer MEDICAID, SELFPAY | PROVIDERS: Visit Provider Clinical Nurse Specialist Psychiatric/Mental Health | DX: Z51.81 Encounter for therapeutic drug level monitoring (principal); F11.21 Opioid dependence, in remission | CPT/HCPCS: 80307; 99212 ==